=== PATIENT | male | born 1995 | race Caucasian/White ===

== ENCOUNTER 2021-07-15 00:01 | Emergency (ER) | payer SELFPAY ==
[~2021-07-15] VITALS: Ht 162.6 cm; Wt 62.1 kg
[2021-07-15 00:14] VITALS: BP_SYST 131
--- NOTE | 2021-07-15 00:14 | NUR ---
Patient to ER bed H1 to gown for evaluation. Side rails up.
--- NOTE | 2021-07-15 01:05 | NUR ---
Pt brought by PD, ambulatory, A&Ox4, pt presents to ER for medical clearance due to Hx of diabetes, BS 358 at this time, pt states he is not compliant with diabetes medications, pt also c/o mild L leg pain , states hit leg while he was arrested, pedal pulses equal and strong.
--- NOTE | 2021-07-15 01:07 | NUR ---
Dr Warren evaluating patient at bedside
[2021-07-15] MEDS ORDERED: INSULIN REGULAR, HUMAN 10 UNITS/0.1 ML INJ SUBCUT ONE (01:15)
[2021-07-15] MEDS ORDERED: NACL 0.9% 1,000 ML IV ONE (01:15)
[2021-07-15] MEDS ORDERED: ACETAMINOPHEN 325 MG TABLET PO ONE (01:15)
[2021-07-15 01:52] LABS: CALCIUM 8.4 mg/dL (8.4-11.0); CREATININE 0.62 mg/dL (0.55-1.30); POTASSIUM 3.9 mmol/L (3.5-5.1)
[2021-07-15 02:28] LABS: BASOPHILS % (AUTO) 0.3 % (0.0-2.0); EOSINOPHILS % (AUTO) 0.4 % (0.0-4.0); HEMATOCRIT 48.7 % (36-54); HEMOGLOBIN 16.9 g/dL (14.0-18.0); LYMPHOCYTES # (AUTO) 1.8 K/uL (1.0-5.5); LYMPHOCYTES % (AUTO) 38.2 % (20.5-51.5); MEAN CORPUSCULAR HEMOGLOBIN 31 pg (27-31); MEAN CORPUSCULAR HGB CONC 35 % (32-36); MEAN CORPUSCULAR VOLUME 89 fL (79.0-98.0); MONOCYTES # (AUTO) 0.4 K/uL (0.0-1.0); MONOCYTES % (AUTO) 7.9 % (1.7-9.3); NEUTROPHILS # (AUTO) 2.5 K/uL (1.8-7.7); NEUTROPHILS % (AUTO) 53.2 % (40.0-70.0); PLATELET COUNT (AUTO) 212 K/uL (130-430); RED BLOOD CELL COUNT(AUTO) 5.45 MIL/uL (4.2-6.2); WHITE BLOOD COUNT (AUTO) 4.7 K/uL (4.8-10.8)
--- NOTE | 2021-07-15 02:34 | NUR ---
Patient given written and verbal discharge instructions and verbalizes understanding. ER MD discussed with patient the results and treatment provided. Patient in stable condition. ID arm band removed. IV catheter removed intact and dressing applied, no active bleeding. Opportunity for questions provided and answered. PT DC INTO [employer]
[2021-07-15 02:35] VITALS: BP_SYST 125
== END 2021-07-15 02:34 | disposition home or self-care (01) ==
LOC: SED 00:01
DX: S80.12XA Contusion of left lower leg, initial encounter (principal); E11.9 Type 2 diabetes mellitus without complications; V43.52XA Car driver injured in collision with other type car in traffic accident, initial encounter; Y93.89 Activity, other specified; Y92.89 Other specified places as the place of occurrence of the external cause; Y99.8 Other external cause status
CPT/HCPCS: 36415; 80048; 82962; 85025; 96372; 99283; J1815